=== PATIENT | male | born 1990 | race Caucasian/White ===

== ENCOUNTER 2016-09-09 01:26 | Emergency (ER) | payer OTHER ==
[~2016-09-09] VITALS: Ht 190.5 cm; Wt 79.5 kg
[~2016-09-09 01:26] MED LIST: CEPHALEXIN500 M1 PO; NO HOME MEDICATIONS; NORCO 325 MG-51 TAB PO; SEPTRA DS 8001 TAB PO; ZYRTEC 10MG10 MG PO
[2016-09-09 01:27] VITALS: TEMP 98.2
[2016-09-09] MEDS ORDERED: NORCO 325 MG-51 TAB PO (02:25)
[2016-09-09 02:37] VITALS: BP 135/74; PULSE 59
== END 2016-09-09 02:37 | disposition home or self-care (01) ==
LOC: COL.ER 01:26
DX: S05.01XA Injury of conjunctiva and corneal abrasion without foreign body, right eye, initial encounter (principal); X58.XXXA Exposure to other specified factors, initial encounter